=== PATIENT | male | born 1970 | race Caucasian/White ===

== ENCOUNTER 2017-11-26 15:32 | Emergency (ER) | payer OTHER ==
[~2017-11-26] VITALS: Ht 182.9 cm; Wt 92.1 kg
[~2017-11-26 15:32] MED LIST: AMITRIPTYLINE H25 M2 PO; GLUCOTROL5 MG PO; LEVEMIR100 UNIT/1 SQ; METOPROLOL TAR100 MG PO; PROPRANOLOL 1010 MG PO
[2017-11-26 15:54] LABS: ABSOLUTE BASOPHILS 0.1 thou/uL (0.0-0.2); ABSOLUTE LYMPHOCYTES 1.9 thou/uL (0.8-5.3); ABSOLUTE MONOCYTES 0.3 thou/uL (0.0-1.2); EOSINOPHILS 0.8 %; HEMATOCRIT 45.1 % (42.0-52.0); HEMOGLOBIN 15.4 gm/dL (14.0-18.0); LYMPHOCYTES 35.8 %; MCH 32.1 pg (26.0-34.0); MCHC 34.2 g/dL (28.0-37.0); MCV 93.8 fL (80.0-100.0); MONOCYTES 5.9 %; MPV 6.1 fl. (7.2-11.1); NUCLEATED RBCS 0 /100WBC; PLATELET COUNT* 151 thou/uL (150-400); POLYS 56.5 %; RDW-CV 15.5 % (10.5-14.5); WBC 5.4 thou/uL (4.0-11.0)
[2017-11-26 16:02] LABS: APTT 27.5 Seconds (25.0-31.3); INR 1.3; PROTIME 12.7 Seconds (9.20-11.50)
[2017-11-26 16:04] LABS: ANION GAP 19 mmol/L (7-16); BUN 8 mg/dL (7-18); CALCIUM 8.6 mg/dL (8.5-10.1); CHLORIDE 106 mmol/L (98-107); CO2 21 mmol/L (21-32); CREATININE 1.1 mg/dL (0.6-1.3); GLUCOSE 187 mg/dL (70-99); POTASSIUM 3.1 mmol/L (3.5-5.1); SODIUM 146 mmol/L (136-145)
[2017-11-26 16:23] LABS: ALBUMIN 3.7 g/dL (3.4-5.0); ALKALINE PHOSPHATASE 109 U/L (46-116); CK-MB MASS 1.7 ng/mL (<0.5-3.6); LIPASE 122 U/L (73-393); MAGNESIUM 1.4 mg/dL (1.8-2.4); NT-PRO BRAIN NAT PEPTIDE 18 pg/mL (<300); SGOT 55 U/L (15-37); SGPT 44 U/L (30-65); TOTAL BILIRUBIN 1.4 mg/dL (<0.1-1.0); TOTAL PROTEIN 7.7 g/dL (6.4-8.2); TROPONIN-I LEVEL <0.06 ng/mL (<0.06)
[2017-11-26 17:05] VITALS: BP 156/99
--- NOTE | 2017-11-27 09:49 | EKG ---
[place] [address] ELECTROCARDIOGRAM REPORT Name: CHELE HELM [id number] Admission: 11/26/17 Attend Phys: Discharge: 11/26/17 Date of : 68 Report #: [id number] THIS REPORT FOR: //name// [facility] ED Test Date: 2017-11-26 Test Time: 15:50:45 Pat Name: CHELE ALICJA Department: Room: Gender: M Motion Picture Actor: LUCIE : 1970 Requested By: Alejo Bonilla Order Number: [id number] MD: Chele Smyth Measurements Intervals [place] Rate: 129 P: -6 HI: 132 QRS: -11 QRSD: 90 T: 75 QT: 315 QTc: 462 Interpretive Statements Sinus tachycardia septal q waves nonspecific st changes Baseline wander in lead(s) II Compared to ECG 07/17/2016 13:27:26 no change Electronically Signed On 11-27-2017 9:49:02 CDT by Chele Smyth [email or web address] <ELECTRONICALLY SIGNED> By: Chele Smyth MD, [facility] 11/27/17 0949 1550 1550 Chele Smyth MD, [facility] /EPI
== END 2017-11-26 17:11 ==
LOC: M.ERS 15:32
PROVIDERS: Family Medicine
DX: F10.129 Alcohol abuse with intoxication, unspecified (principal); E11.9 Type 2 diabetes mellitus without complications; I10 Essential (primary) hypertension; F17.210 Nicotine dependence, cigarettes, uncomplicated; Z88.8 Allergy status to other drugs, medicaments and biological substances; Z79.4 Long term (current) use of insulin

== ENCOUNTER 2018-11-05 19:33 | Emergency (ER) | payer OTHER ==
[~2018-11-05] VITALS: Ht 182.9 cm; Wt 84.8 kg
[2018-11-05 19:53] LABS: ABSOLUTE LYMPHOCYTES 2.7 thou/uL (0.8-5.3); ABSOLUTE MONOCYTES 0.6 thou/uL (0.0-1.2); ABSOLUTE NEUTROPHILS 6.7 thou/uL (1.6-8.1); BASOPHILS 0.3 %; EOSINOPHILS 0.4 %; HEMATOCRIT 42.7 % (42.0-52.0); HEMOGLOBIN 14.8 gm/dL (14.0-18.0); MCHC 34.6 g/dL (28.0-37.0); MCV 92.6 fL (80.0-100.0); MONOCYTES 5.7 %; MPV 6.8 fl. (7.2-11.1); NUCLEATED RBCS 0 /100WBC; PLATELET COUNT* 202 thou/uL (150-400); POLYS 66.6 %; RBC 4.62 mil/uL (4.50-6.00); RDW-CV 15.7 % (10.5-14.5)
[2018-11-05 20:09] LABS: APTT 26.6 Seconds (25.0-31.3); INR 1.2; PROTIME 11.8 Seconds (9.20-11.50)
[2018-11-05 20:10] LABS: ANION GAP 16 mmol/L (7-16); BUN 18 mg/dL (7-18); CALCIUM 10.3 mg/dL (8.5-10.1); CHLORIDE 103 mmol/L (98-107); CO2 25 mmol/L (21-32); CREATININE 1.5 mg/dL (0.6-1.3); GLUCOSE 192 mg/dL (70-99); POTASSIUM 3.8 mmol/L (3.5-5.1); SODIUM 144 mmol/L (136-145)
[2018-11-05 20:22] LABS: ALBUMIN 4.4 g/dL (3.4-5.0); ALKALINE PHOSPHATASE 117 U/L (46-116); LIPASE 168 U/L (73-393); NT-PRO BRAIN NAT PEPTIDE 17 pg/mL (<300); SGOT 25 U/L (15-37); SGPT 38 U/L (30-65); TOTAL BILIRUBIN 1.1 mg/dL (<0.1-1.0); TOTAL PROTEIN 8.7 g/dL (6.4-8.2); TROPONIN-I LEVEL <0.06 ng/mL (<0.06)
[2018-11-05 20:56] LABS: URINE BILIRUBIN NEGATIVE (Negative); URINE BLOOD NEGATIVE (Negative); URINE CLARITY CLEAR; URINE COLOR YELLOW; URINE GLUCOSE-RANDOM NEGATIVE (Negative); URINE KETONES NEGATIVE (Negative); URINE LEUKOCYTES 1+ (Negative); URINE NITRITE NEGATIVE (Negative); URINE PROTEIN 1+ (Negative); URINE SPECIFIC GRAVITY 1.015 (1.005-1.030); URINE UROBILINOGEN 0.2 E.U./dl (0.2-1.0)
[2018-11-05 21:02] LABS: AMP/METHAMP Negative (Negative); BARBITURATES Negative (Negative); BENZODIAZEPINES Negative (Negative); COCAINE Negative (Negative); METHADONE Negative (Negative); OPIATES Negative (Negative); PCP Negative (Negative); THC Negative (Negative)
[2018-11-05 21:10] LABS: SQUAMOUS >10 Many /LPF (0-3)
[2018-11-05 21:11] LABS: CRYSTALS None Seen /LPF (None Seen); HYALINE CASTS 0-3 Few /LPF (None Seen); URINE WBC >25 Many /HPF (0-5); WBC CLUMPS Few (None Seen)
[2018-11-05 21:12] LABS: MUCUS None Seen strn/LPF (None Seen); URINE RBC None Seen /HPF (0-2)
[2018-11-06] MEDS ORDERED: CHLORDIAZEPOXID25 M1 PO (00:09)
[2018-11-06 00:58] VITALS: BP 191/95
--- NOTE | 2018-11-06 15:40 | EKG ---
[place] [address] ELECTROCARDIOGRAM REPORT Name: CHELE HELM Room: [facility]#: [id number] Admission: 11/05/18 Attend Phys: Discharge: 11/06/18 Date of : 68 Report #: [id number] THIS REPORT FOR: //name// [facility] ED Test Date: 2018-11-05 Test Time: 19:38:18 Pat Name: CHELE HELM Department: Room: Gender: M Dip Dyer: : 1970 Requested By: Veronica Vega Order Number: [id number] MD: Mike Solis Measurements Intervals [place] Rate: 128 P: 50 IN: 141 QRS: 4 QRSD: 81 T: 54 QT: 318 QTc: 464 Interpretive Statements Sinus tachycardia Possible anteroseptal infarct, old Compared to ECG 11/26/2017 15:50:45 Possible Myocardial infarct finding now present Q waves no longer present ST (T wave) deviation no longer present Electronically Signed On 11-06-2018 15:39:55 CDT by Mike Solis [email or web address] <ELECTRONICALLY SIGNED> By: Mike Solis MD, FACC 11/06/18 1539 37 37 Mike Solis MD, FAC /EPI
== END 2018-11-06 01:00 | disposition home or self-care (01) ==
LOC: M.ERS 19:33
PROVIDERS: Personal Emergency Response Attendant
DX: R07.89 Other chest pain (principal); F10.239 Alcohol dependence with withdrawal, unspecified; Y90.6 Blood alcohol level of 120-199 mg/100 ml; I10 Essential (primary) hypertension; E11.9 Type 2 diabetes mellitus without complications; Z79.4 Long term (current) use of insulin; Z88.8 Allergy status to other drugs, medicaments and biological substances; Z79.899 Other long term (current) drug therapy

== ENCOUNTER 2019-02-14 23:21 | Emergency (ER) | payer OTHER ==
[~2019-02-14] VITALS: Ht 188 cm; Wt 86.2 kg
[~2019-02-14 23:21] MED LIST changes: +CHLORDIAZEPOXID25 M1 PO
[2019-02-14] MEDS ORDERED: NEURONTIN600 MG PO (23:29)
[2019-02-14] MEDS ORDERED: OMEPRAZOLE 20 M20 M1 PO (23:29)
[2019-02-15 01:20] VITALS: BP 150/90
[2019-02-15 01:31] LABS: URINE BILIRUBIN NEGATIVE (Negative); URINE BLOOD NEGATIVE (Negative); URINE CLARITY CLEAR; URINE COLOR YELLOW; URINE GLUCOSE-RANDOM NEGATIVE (Negative); URINE KETONES NEGATIVE (Negative); URINE LEUKOCYTES NEGATIVE (Negative); URINE NITRITE NEGATIVE (Negative); URINE PROTEIN NEGATIVE (Negative); URINE SPECIFIC GRAVITY <= 1.005 (1.005-1.030); URINE UROBILINOGEN 0.2 E.U./dl (0.2-1.0)
== END 2019-02-15 01:20 | disposition home or self-care (01) ==
LOC: M.ERS 23:21
PROVIDERS: Emergency Medicine
DX: L81.8 Other specified disorders of pigmentation (principal); F20.9 Schizophrenia, unspecified; I10 Essential (primary) hypertension; E11.9 Type 2 diabetes mellitus without complications; F17.200 Nicotine dependence, unspecified, uncomplicated; Z88.8 Allergy status to other drugs, medicaments and biological substances; Z79.4 Long term (current) use of insulin

== ENCOUNTER 2019-12-31 14:42 | Emergency (ER) | payer OTHER ==
[~2019-12-31] VITALS: Ht 182.9 cm; Wt 77.1 kg
[~2019-12-31 14:42] MED LIST changes: +NEURONTIN600 MG PO; +OMEPRAZOLE 20 M20 M1 PO
[2019-12-31] MEDS ORDERED: RISPERDAL 3 MG T3 MG PO (15:01)
[2019-12-31 15:09] LABS: HEMATOCRIT 35.2 % (42.0-52.0); HEMOGLOBIN 12.5 gm/dL (14.0-18.0); MCH 31.6 pg (26.0-34.0); MCHC 35.5 g/dL (28.0-37.0); MCV 88.9 fL (80.0-100.0); RBC 3.96 mil/uL (4.50-6.00); RDW-CV 15.7 % (10.5-14.5); WBC 5.1 thou/uL (4.0-11.0)
[2019-12-31 15:19] LABS: CALCIUM 8.8 mg/dL (8.5-10.1); CREATININE 1.2 mg/dL (0.6-1.3)
[2019-12-31 15:28] LABS: URINE BILIRUBIN NEGATIVE (Negative); URINE BLOOD NEGATIVE (Negative); URINE CLARITY CLEAR; URINE COLOR YELLOW; URINE GLUCOSE-RANDOM NEGATIVE (Negative); URINE KETONES NEGATIVE (Negative); URINE LEUKOCYTES NEGATIVE (Negative); URINE NITRITE NEGATIVE (Negative); URINE PROTEIN NEGATIVE (Negative); URINE SPECIFIC GRAVITY 1.015 (1.005-1.030)
[2019-12-31 15:33] LABS: POTASSIUM 2.5 mmol/L (3.5-5.1)
[2019-12-31 15:36] LABS: ALBUMIN 3.6 g/dL (3.4-5.0); TOTAL BILIRUBIN 1.5 mg/dL (<0.1-1.0); TOTAL PROTEIN 6.8 g/dL (6.4-8.2)
[2019-12-31 15:37] LABS: AMP/METHAMP POSITIVE (Negative); BARBITURATES Negative (Negative); BENZODIAZEPINES Negative (Negative); COCAINE Negative (Negative); METHADONE Negative (Negative); OPIATES Negative (Negative); PCP Negative (Negative); THC Negative (Negative)
[2019-12-31 15:38] LABS: ACETAMINOPHEN < 2 ug/mL (10-30); ALCOHOL < 10 mg/dL (<10); SALICYLATE < 2.8 mg/dL (2.8-20.0)
[2019-12-31] MEDS ORDERED: HALDOL 0.5 MG0.5 MG PO (17:24)
[2019-12-31] MEDS ORDERED: DILTIAZEM 24HR120 M1 PO (19:30)
[2019-12-31 19:45] VITALS: BP 169/99
--- NOTE | 2020-01-01 13:43 | EKG ---
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 : 1970 Requested By: Veronica Vega Order Number: [id number] MD: Jhony Smyth Measurements Intervals [place] Rate: 85 P: 46 MO: 153 QRS: 14 QRSD: 88 T: 52 QT: 408 QTc: 486 Interpretive Statements Sinus rhythm Probable left atrial enlargement Anterior infarct, old Compared to ECG 11/05/2018 19:38:18 Sinus tachycardia no longer present Myocardial infarct finding still present Electronically Signed On 01-01-2020 13:43:06 CDT by Jhony Smyth [email or web address] <ELECTRONICALLY SIGNED> By: Jhony Smyth MD, [facility] 01/01/20 1343 1447 1447 Jhony Smyth MD, [facility] /EPI
== END 2019-12-31 19:45 | disposition home or self-care (01) ==
LOC: M.ERS 14:42
PROVIDERS: Personal Emergency Response Attendant
DX: I10 Essential (primary) hypertension (principal); F19.90 Other psychoactive substance use, unspecified, uncomplicated; F15.93 Other stimulant use, unspecified with withdrawal; I16.0 Hypertensive urgency; E87.6 Hypokalemia; E11.9 Type 2 diabetes mellitus without complications; F20.9 Schizophrenia, unspecified; Z88.8 Allergy status to other drugs, medicaments and biological substances; Z79.899 Other long term (current) drug therapy

== ENCOUNTER 2020-03-17 02:17 | Emergency (ER) | payer OTHER ==
[~2020-03-17] VITALS: Ht 182.9 cm; Wt 83.9 kg
[~2020-03-17 02:17] MED LIST changes: +DILTIAZEM 24HR120 M1 PO; +HALDOL 0.5 MG0.5 MG PO; +RISPERDAL 3 MG T3 MG PO
[2020-03-17 02:58] LABS: URINE BILIRUBIN NEGATIVE (Negative); URINE BLOOD NEGATIVE (Negative); URINE CLARITY CLEAR; URINE COLOR YELLOW; URINE GLUCOSE-RANDOM NEGATIVE (Negative); URINE KETONES NEGATIVE (Negative); URINE LEUKOCYTES TRACE (Negative); URINE NITRITE NEGATIVE (Negative); URINE PROTEIN NEGATIVE (Negative); URINE UROBILINOGEN 0.2 E.U./dl (0.2-1.0)
[2020-03-17 03:06] LABS: AMP/METHAMP POSITIVE (Negative); BARBITURATES Negative (Negative); BENZODIAZEPINES Negative (Negative); COCAINE Negative (Negative); METHADONE Negative (Negative); OPIATES Negative (Negative); PCP Negative (Negative); THC Negative (Negative)
[2020-03-17 03:10] LABS: CALCIUM OXALATE 0-3 Few /LPF (None Seen); CASTS None Seen /LPF (None Seen); SQUAMOUS 0-3 Few /LPF (0-3); URINE RBC 0-2 Rare /HPF (0-2); URINE WBC 0-5 Rare /HPF (0-5)
[2020-03-17 03:10] LABS: HEMATOCRIT 39.9 % (42.0-52.0); HEMOGLOBIN 13.9 gm/dL (14.0-18.0); MCH 32.2 pg (26.0-34.0); MCHC 34.7 g/dL (28.0-37.0); MCV 92.6 fL (80.0-100.0); MPV 6.8 fl. (7.2-11.1); RBC 4.31 mil/uL (4.50-6.00); RDW-CV 16.2 % (10.5-14.5); WBC 4.9 thou/uL (4.0-11.0)
[2020-03-17 03:15] LABS: CALCIUM 9.4 mg/dL (8.5-10.1); POTASSIUM 3.5 mmol/L (3.5-5.1)
[2020-03-17 03:19] LABS: ALBUMIN 4.1 g/dL (3.4-5.0); TOTAL BILIRUBIN 0.8 mg/dL (<0.1-1.0)
[2020-03-17 03:28] LABS: ACETAMINOPHEN < 2 ug/mL (10-30); ALCOHOL 29 mg/dL (<10); SALICYLATE 3.2 mg/dL (2.8-20.0)
[2020-03-17] MEDS ORDERED: KEFLEX500 M1 PO (04:27)
[2020-03-17] MEDS ORDERED: MUPIROCIN15 GM TOP (04:27)
[2020-03-17 04:28] VITALS: BP 146/97
== END 2020-03-17 04:49 | disposition home or self-care (01) ==
LOC: M.ERS 02:17
PROVIDERS: Personal Emergency Response Attendant
DX: F15.90 Other stimulant use, unspecified, uncomplicated (principal); Z88.8 Allergy status to other drugs, medicaments and biological substances; Z79.899 Other long term (current) drug therapy; I10 Essential (primary) hypertension; E11.9 Type 2 diabetes mellitus without complications; F20.9 Schizophrenia, unspecified

== ENCOUNTER 2020-05-26 17:49 | Emergency (ER) | payer OTHER ==
[~2020-05-26] VITALS: Ht 185.4 cm; Wt 74.8 kg
[~2020-05-26 17:49] MED LIST changes: +KEFLEX500 M1 PO; +MUPIROCIN15 GM TOP
[2020-05-26] MEDS ORDERED: KEFLEX500 M2 PO (18:46)
[2020-05-26 19:03] VITALS: BP 145/94
== END 2020-05-26 19:03 | disposition home or self-care (01) ==
LOC: M.ERS 17:49
DX: S41.112A Laceration without foreign body of left upper arm, initial encounter (principal); S61.210A Laceration without foreign body of right index finger without damage to nail, initial encounter; S61.212A Laceration without foreign body of right middle finger without damage to nail, initial encounter; I10 Essential (primary) hypertension; E11.9 Type 2 diabetes mellitus without complications; F19.10 Other psychoactive substance abuse, uncomplicated; W45.8XXA Other foreign body or object entering through skin, initial encounter; Y93.89 Activity, other specified; Y92.89 Other specified places as the place of occurrence of the external cause; Y99.8 Other external cause status

== ENCOUNTER 2020-07-31 11:41 | Emergency (ER) | payer OTHER ==
[~2020-07-31] VITALS: Ht 182.9 cm; Wt 79.0 kg
[~2020-07-31 11:41] MED LIST changes: +KEFLEX500 M2 PO
[2020-07-31 12:01] LABS: ABSOLUTE BASOPHILS 0.1 thou/uL (0.0-0.2); ABSOLUTE EOSINOPHILS 0.2 thou/uL (0.0-0.7); ABSOLUTE LYMPHOCYTES 1.6 thou/uL (0.8-5.3); ABSOLUTE MONOCYTES 0.4 thou/uL (0.0-1.2); BASOPHILS 1.2 %; EOSINOPHILS 2.5 %; HEMATOCRIT 40.8 % (42.0-52.0); HEMOGLOBIN 13.9 gm/dL (14.0-18.0); LYMPHOCYTES 25.3 %; MCH 30.9 pg (26.0-34.0); MONOCYTES 7.1 %; MPV 6.8 fl. (7.2-11.1); NUCLEATED RBCS 0 /100WBC; PLATELET COUNT* 184 thou/uL (150-400); POLYS 63.9 %; RBC 4.48 mil/uL (4.50-6.00); RDW-CV 14.6 % (10.5-14.5); WBC 6.2 thou/uL (4.0-11.0)
[2020-07-31 12:10] LABS: CALCIUM 9.4 mg/dL (8.5-10.1); CREATININE 1.2 mg/dL (0.6-1.3); POTASSIUM 3.7 mmol/L (3.5-5.1)
[2020-07-31 12:14] LABS: TOTAL BILIRUBIN 1.3 mg/dL (<0.1-1.0); TOTAL PROTEIN 7.6 g/dL (6.4-8.2)
[2020-07-31 12:20] LABS: ACETAMINOPHEN < 2 ug/mL (10-30); ALCOHOL < 10 mg/dL (<10); SALICYLATE < 2.8 mg/dL (2.8-20.0)
--- NOTE | 2020-07-31 15:05 | EKG ---
[place] [address] ELECTROCARDIOGRAM REPORT Name: JHONY HELM Room: [facility]#: [id number] Admission: 07/31/20 Attend Phys: Discharge: Date of : 68 Date of Service: 07/31/20 1149 Report #: [id number] THIS REPORT FOR: //name// 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: : 1970 Requested By: Aniceto Covington Order Number: [id number] MD: Jhony Smyth Measurements Intervals [place] Rate: 98 P: 55 CT: 154 QRS: 24 QRSD: 79 T: 57 QT: 383 QTc: 490 Interpretive Statements Sinus rhythm septal q waves Borderline prolonged QT interval Compared to ECG 12/31/2019 14:47:31 no change Electronically Signed On 07-31-2020 15:05:43 HADOOP JAVA DEVELOPER by Jhony Smyth [email or web address] <ELECTRONICALLY SIGNED> By: Jhony Smyth MD, [facility] 07/31/20 1505 1149 1149 Jhony Smyth MD, FAC /EPI
[2020-07-31 20:17] LABS: POTASSIUM 4.5 mmol/L (3.5-5.1)
[2020-07-31 21:13] LABS: URINE BILIRUBIN NEGATIVE (Negative); URINE BLOOD NEGATIVE (Negative); URINE CLARITY CLOUDY; URINE COLOR YELLOW; URINE GLUCOSE-RANDOM NEGATIVE (Negative); URINE KETONES NEGATIVE (Negative); URINE LEUKOCYTES-REFLEX TRACE (Negative); URINE PROTEIN NEGATIVE (Negative)
[2020-07-31 21:14] LABS: URINE NITRITE-REFLEX POSITIVE (Negative)
[2020-07-31 21:22] LABS: AMP/METHAMP POSITIVE (Negative); BARBITURATES Negative (Negative); BENZODIAZEPINES Negative (Negative); COCAINE Negative (Negative); METHADONE Negative (Negative); OPIATES Negative (Negative); PCP Negative (Negative); THC POSITIVE (Negative)
[2020-07-31 21:33] LABS: SQUAMOUS >10 Many /LPF (0-3)
[2020-07-31 21:34] LABS: BACTERIA-REFLEX >30 Many /HPF (None Seen); CASTS None Seen /LPF (None Seen); CRYSTALS None Seen /LPF (None Seen); URINE RBC None Seen /HPF (0-2)
--- NOTE | 2020-08-01 14:00 | EKG ---
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: : 1970 Requested By: Aniceto Covington Order Number: [id number] MD: Patric Burgos Measurements Intervals [place] Rate: 101 P: 49 [place]: 163 QRS: 2 QRSD: 73 T: 42 QT: 379 QTc: 492 Interpretive Statements Sinus tachycardia Anteroseptal infarct, old Baseline wander in lead(s) I,III,aVL,V3,V6 Compared to ECG 07/31/2020 11:49:34 Myocardial infarct finding now present Sinus rhythm no longer present Q waves no longer present Electronically Signed On 08-01-2020 14:00:02 SALES CLOSER by Patric Burgos [email or web address] <ELECTRONICALLY SIGNED> By: Alexander Burgos MD, [facility] 08/01/20 1400 39 39 Alexander Burgos MD, [facility] /EPI
== END 2020-08-01 06:37 ==
LOC: M.ERS 11:41
PROVIDERS: Emergency Medicine Emergency Medical Services; Personal Emergency Response Attendant
DX: T43.212A Poisoning by selective serotonin and norepinephrine reuptake inhibitors, intentional self-harm, initial encounter (principal); F22 Delusional disorders; Z20.822 Contact with and (suspected) exposure to COVID-19; I10 Essential (primary) hypertension; E11.9 Type 2 diabetes mellitus without complications; Z88.8 Allergy status to other drugs, medicaments and biological substances; Y92.89 Other specified places as the place of occurrence of the external cause